=== PATIENT | female | born 1965 | race Caucasian/White ===

== ENCOUNTER 2017-11-22 20:24 | Emergency (ER) | payer OTHER, BC ==
[2017-11-22] MEDS ORDERED: Sodium Chloride 0.9% 10 ML Syringe FLUSH PRN (20:52)
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
[2017-11-22] MEDS ORDERED: Acetaminophen/HYDROcodone 325-10 MG Tab PO ONE (21:01)
[2017-11-22 21:12] LABS: CHLORIDE,CL 102 mmol/L (101-111); SODIUM,NA 138 mmol/L (135-145)
[2017-11-22] MEDS ORDERED: Iopamidol 612 MG/ML 100 ML Bottle IVPUSH ONE (21:33)
--- NOTE | 2017-11-26 13:18 | EKG ---
11/22/2017- MISTY LINO - FINDINGS: EKG, per my reading, shows sinus rhythm at the rate of 64. MOD /[id number]
== END 2017-11-22 23:14 | disposition home or self-care (01) ==
LOC: DL.ED 20:24
DX: R21 Rash and other nonspecific skin eruption (principal); L53.9 Erythematous condition, unspecified; K21.9 Gastro-esophageal reflux disease without esophagitis; Z88.8 Allergy status to other drugs, medicaments and biological substances; Z79.899 Other long term (current) drug therapy
CPT/HCPCS: 36415; 70450; 71260; 72125; 74177; 80053; 81001; 84484; 85025; 93005; 99285; A9270; J7050; Q9967

== ENCOUNTER 2025-01-06 05:30 | Emergency (ER) | payer MEDICAID ==
[2025-01-06] MEDS ORDERED: Sodium Chloride 0.9% 10 ML Syringe FLUSH PRN (05:51)
[2025-01-06] MEDS: Ondansetron 4 MG/2 ML SDV IVPUSH ONE (06:02)
[2025-01-06] MEDS: Ketorolac 30 MG/ML SDV IVPUSH ONE (06:04)
[2025-01-06] MEDS: Sodium Chloride 0.9% 1,000 ML IV ONE (06:06)
[2025-01-06 06:15] LABS: BASOPHILS PERCENT AUTO 0.1 % (0.0-1.0); EOSINOPHILS PERCENT AUTO 0.7 % (1.0-3.0); HEMATOCRIT 43.2 % (37.0-47.0); HEMOGLOBIN 14.6 g/dL (12.0-16.0); MEAN CORPUSCULAR HEMOGLOBIN 31.1 pg (27.0-34.0); MEAN CORPUSCULAR HGB CONC 33.8 g/dL (33.0-35.0); MEAN CORPUSCULAR VOLUME 92.1 fL (80-100); MONOCYTES PERCENT AUTO 11.5 % (2-8); NEUTROPHILS PERCENT AUTO 60.7 % (42.2-75.2); PLATELET COUNT,PLT 221 10^3/uL (150-450); RED BLOOD CELL COUNT 4.69 10^6/uL (4.2-5.4); WHITE BLOOD CELL COUNT,WBC 8.9 10^3/uL (5.0-10.0)
[2025-01-06 06:25] LABS: A/G RATIO 1.2; ALBUMIN 3.9 g/dL (3.4-5.0); ANION GAP 12.9 mEq/L (7-13); BILIRUBIN TOTAL 0.7 mg/dL (0.2-1.0); BUN/CREATININE RATIO 17.3 (No establ ref range); CALCIUM 9.2 mg/dL (8.5-10.1); CREATININE 1.33 mg/dL (0.55-1.02); EST CRCL DRUG DOSING (CG) 43.2 mL/min; POTASSIUM,K 3.9 mmol/L (3.5-5.1); PROTEIN TOTAL,TP 7.2 g/dL (6.4-8.2)
[2025-01-06 06:28] LABS: LACTIC ACID 0.9 mmol/L (0.4-2.0)
[2025-01-06 07:09] VITALS: BP 147/73; PULSE 63
[2025-01-06 07:14] LABS: APPEARANCE,URINE CLEAR (CLEAR); BILIRUBIN,URINE NEGATIVE (NEGATIVE); COLOR,URINE YELLOW (YELLOW); GLUCOSE,URINE NEGATIVE (NEGATIVE); KETONES,URINE NEGATIVE (NEGATIVE); LEUKOCYTE ESTERASE,URINE NEGATIVE (NEGATIVE); NITRITE,URINE NEGATIVE (NEGATIVE); OCCULT BLOOD,URINE MODERATE (NEGATIVE); PROTEIN,URINE 30 (NEGATIVE); UROBILINOGEN,URINE 0.2 mg/dL (0.2-1.0)
[2025-01-06 07:47] LABS: EPITHELIAL CELLS,URINE MANY /HPF (NOT SEEN); MUCUS,URINE MODERATE /LPF (NOT SEEN)
[2025-01-06 07:48] LABS: RBC,URINE 20-30 /HPF (0-5)
[2025-01-06 07:52] LABS: BACTERIA,URINE RARE /HPF (0-FEW/HPF); WBC,URINE 0-5 /HPF (0-5/HPF)
== END 2025-01-06 07:55 | disposition home or self-care (01) ==
LOC: DL.ED 05:30
DX: N20.2 Calculus of kidney with calculus of ureter (principal); I10 Essential (primary) hypertension; K21.9 Gastro-esophageal reflux disease without esophagitis; Z88.8 Allergy status to other drugs, medicaments and biological substances; Z79.899 Other long term (current) drug therapy; Z86.16 Personal history of COVID-19
CPT/HCPCS: 36415; 74176; 80053; 81001; 83605; 85025; 96361; 96374; 96375; 99284; J1885; J2405; J7030